=== PATIENT | female | born 1960 | race Caucasian/White ===

== ENCOUNTER 2018-07-20 07:29 | Day surgery (SDC) | payer OTHER ==
[~2018-07-20] VITALS: Ht 154.9 cm; Wt 80.0 kg
[~2018-07-20 07:29] MED LIST: ASPI-818 PO; CALCIUM 600 MG PO; IBUP-1542 PO; LEVO125T7 PO; MELOXICAM; SIMVASTATIN
[2018-07-20 08:07] VITALS: Ht 154.9 cm; Wt 80.0 kg
[2018-07-20] MEDS ORDERED: NAPROXEN (08:18)
[2018-07-20 08:59] VITALS: BP 135/95; PULSE 73; RESP 18
[2018-07-20] MEDS ORDERED: PROPOFOL 20 ML ONE (09:06)
[2018-07-20] MEDS ORDERED: FENTAnyl 50 MCG/ML VIAL ONE (09:07)
--- NOTE | 2018-07-20 09:10 | PREAC ---
Date/Time of Note Date/Time of Note DATE: 07/20/18 TIME: 09:10 Anesthesia Eval and Record Evaluation Time Pre-Procedure Interview DATE: 07/20/18 TIME: 09:10 Age 58 Sex female NPO: 8 hrs Preoperative diagnosis screening Planned procedure colonoscopy Past Medical History Past Medical History: Includes Endo: Hypothyroid Musculoskeletal: Osteoarthritis Surgery & Anesthesia Issues No known issue Meds Anticoagulation: No Beta Enedina within 24 hr: No Reason Beta Enedina not given: Pt. not on B-Enedina Reported Medications [Naproxen Daily] No Conflict Check 07/20/18 Levothyroxine Sodium* (Levothyroxine Sodium*) 125 Mcg Tablet, 125 MCG PO AM 01/05/12 Discontinued Reported Medications [Calcium 600 Mg] No Conflict Check, 1 TAB PO DAILY 01/05/12 Ibuprofen* (Ibuprofen*) 600 Mg Tablet, 600 MG PO TID PRN PO 01/05/12 [Meloxicam Po Daily] No Conflict Check 01/05/12 [Zocor Po Qhs] No Conflict Check 01/05/12 Aspirin (Aspirin Low Dose) 81 Mg Tablet.dr 81 MG PO 2 X PER WEEK 01/05/12 Meds reviewed: Yes Allergies Coded Allergies: No Known Allergy (Unverified , 07/20/18) Allergies Reviewed: Yes Labs/Studies Labs Reviewed: Reviewed by anesthesiologist test: N/A Studies: ECG (n/a), CXR (n/a) Pre-procedure Exam Last vitals Vital Signs Date Temp Pulse Resp B/P (MAP) Pulse Ox O2 O2 Flow FiO2 Time Delivery Rate 07/20/18 98.2 73 18 135/95 97 Room Air 08:59 (108) Airway: Adequate mouth opening Mallampati: Mallampati I Teeth: Normal Lung: Normal Heart: Normal ASA Physical Status ASA physical status: 2 Emergency: None Planned Anesthetic General/MAC: MAC Planned Pain Management Parenteral pain med Pre-operative Attestations Prior to commencing anesthesia and surgery, the patient was re-evaluated, there was verification of: *The patient's identity *The results of appropriate recent lab work and preoperative vital signs *The above evaluation not changing prior to induction *Anesthetic plan, risk benefits, alternative and complications discussed with patient/family; questions answered; patient/family understands, accepts and wishes to proceed. ABDIAZIZ SHARP MD Jul 20, 2018 09:10
[2018-07-20] MEDS ORDERED: ONDANSETRON 4 MG INJ IV PRN (10:00)
[2018-07-20 10:03] VITALS: BP 126/58; RESP 20
--- NOTE | 2018-07-21 14:52 | PAC ---
Date/Time of Note Date/Time of Note DATE: 07/21/18 TIME: 14:52 Post-Anesthesia Notes Post-Anesthesia Note Last documented vital signs Vital Signs Date Temp Pulse Resp B/P (MAP) Pulse Ox O2 O2 Flow FiO2 Time Delivery Rate 07/20/18 98.3 74 20 126/58 94 10:03 (80) 07/20/18 98.2 73 Room Air 08:59 Activity: WNL Respiratory function: WNL Cardiovascular function: WNL Mental status: Baseline Pain reasonably controlled: Yes Hydration appropriate: Yes Nausea/Vomiting absent: No ABDIAZIZ SHARP MD Jul 21, 2018 14:52
== END 2018-07-20 11:20 | disposition home or self-care (01) ==
LOC: GIL 07:29
PROVIDERS: ATTEND Internal Medicine Gastroenterology
DX: Z12.11 Encounter for screening for malignant neoplasm of colon (principal); E03.9 Hypothyroidism, unspecified; D12.6 Benign neoplasm of colon, unspecified
CPT/HCPCS: 45380; 88305; J3010; Z7610